=== PATIENT | male | born 1965 | race Caucasian/White ===

== ENCOUNTER 2018-02-18 01:12 | Outpatient (CLI) | payer OTHER, SELFPAY | END 2018-02-18 01:32 | PROVIDERS: PCP Family Medicine; Visit Provider Family Medicine | DX: E11.9 Type 2 diabetes mellitus without complications (principal) | CPT/HCPCS: 36415; 83036 ==

== ENCOUNTER 2018-05-26 01:26 | Outpatient (CLI) | payer OTHER, SELFPAY ==
[2018-05-26 08:12] LABS: Hemoglobin A1C 6.9 % (4.5-6.2)
== END 2018-05-26 01:46 ==
PROVIDERS: PCP Family Medicine; Visit Provider Family Medicine
DX: E11.39 Type 2 diabetes mellitus with other diabetic ophthalmic complication (principal)
CPT/HCPCS: 36415; 83036

== ENCOUNTER 2018-07-19 05:50 | Emergency (ER) | payer OTHER, SELFPAY ==
[2018-07-19] VITALS (36 sets, daily range): BP systolic 113–130; BP diastolic 80–101; PULSE 73–94; RESP 11–20; TEMP 36.1; O2SAT 92–98
--- NOTE | 2018-07-19 06:10 | DI.RAD_ITS ---
SYMPTOM/DIAGNOSIS: LT UPPER THORACIC PAIN PA AND LATERAL CHEST: Comparison is made with 07/29/09. The heart size is normal. The lungs are well inflated and clear. No infiltrate or effusion is seen. IMPRESSION: Negative chest xray.
--- NOTE | 2018-07-19 06:17 | ED.GENADUL_ITS ---
Discharge Plan Disposition Patient Disposition: HOME Condition: Improving Discharge Details Chief Complaint: Nk/Back Pain Clinical Impression: Left-sided thoracic back pain, Left-sided chest wall pain Primary Care Provider: Sheldon Harley ED Provider: Ivett Jones Home Meds and New Rx's Prescriptions: New lidocaine [Lidoderm] 5 % adhesive patch,medicated 1 patch TP DAILY Qty: 15 RF: 0 cyclobenzaprine 10 mg tablet 10 mg PO TID PRN (Reason: muscle spasm) Qty: 10 RF: 0 Continued metformin [Glucophage] 1,000 mg tablet 500 mg PO BID Qty: 90 RF: 4 sildenafil [Viagra] 100 mg tablet 100 mg PO As Directed Qty: 6 RF: 5 aspirin [Ecotrin Low Strength] 81 MG tablet,delayed release (DR/EC) 81 mg PO DAILY RF: 0 indomethacin 50 MG capsule 50 mg PO TID Qty: 15 RF: 2 pen needle, diabetic [BD Ultra-Fine Diane Pen Needle] 1 EACH needle 1 ea Miscellaneous DAILY Qty: 100 RF: 3 ONETOUCH ULTRA TEST STRIPS 1 EACH strip 1 ea Miscellaneous DAILY Qty: 100 RF: 5 Lantus U-100 Insulin 100 UNIT/1 ML solution 50 u Sub-Q BID Qty: 3 RF: 11 lisinopril 20 MG tablet 20 mg PO DAILY Qty: 90 RF: 4 BD Insulin Syringe 1 EACH syringe 1 ea Miscellaneous BID Qty: 180 RF: 4 Victoza 3-[place] 0.6 mg/0.1 mL (18 mg/3 mL) pen injector 1.2 mg subcut DAILY Qty: 1 RF: 5 tamsulosin 0.4 mg capsule 0.8 mg PO DAILY Qty: 180 RF: 4 Discharge Instructions Instructions: Back Pain (ED), Chest Wall Pain (ED) Additional Instructions: Alternate Tylenol and Motrin as needed and directed for pain. Take the muscle relaxer Flexeril as needed and directed for pain or muscle spasm not relieved with Tylenol or Motrin. Use the Lidoderm patch as needed and directed. Follow-up with your primary care doctor in 2 days for reevaluation and for referral for stress test if symptoms persist or worsen. Return immediately to the emergency department any worsening or new concerning symptoms. Discharge Data Discharge Date/Time-TO BE ENTERED AT DEPARTURE: 07/19/18 11:00 Discharge Physician: Ivett Jones Medical Decision Making <Samir Hardwick MD - Last Filed: 07/19/18 07:42> Patient presenting with what I suspect is left upper back musculoskeletal pain. It is reproducible with movement and palpation. However, he reports shortness of breath which may very well be related to him being out of shape. He also complains of the pain radiating into the chest. He has significant cardiac risk factors. Does not really have PE risk factors and does not really describe pleuritic chest pain. However, given his age and risk factors, will treat as musculoskeletal back pain but workup for potential cardiovascular/pulmonary issues. As such EKG, laboratory studies, chest x-ray ordered. He is given Toradol IV and a Lidoderm patch is placed on his back for pain control. Patient's EKG shows a incomplete right bundle branch block but is otherwise unremarkable. Laboratory studies unremarkable other than elevated blood glucose just above 300. Troponin is negative. D-dimer is negative. Chest x-ray per my review shows normal mediastinum with no infiltrate or pneumothorax. Patient's pain has essentially gone away with Lidoderm and Toradol. He is actually able to move and turn his neck and use his left arm better. Again suspect musculoskeletal pain as a source of his discomfort. We will plan a second troponin and EKG after 9 AM. If negative I feel patient is safe to discharge and follow-up with primary care. Would continue nonsteroidals and Lidoderm. Patient will be signed out to oncoming physician Dr. Jones. Medical Records Medical records reviewed: Yes I reviewed the patient's medical records. Lab Data Lab results reviewed: Yes I reviewed the patient's lab results. ECG Data Attestation: I personally reviewed and interpreted this ECG (s) as follows: Prior ECG tracings: available for review Interpretation: Normal sinus rhythm at a rate of 82. Incomplete right bundle branch block. Normal axis. No acute ST changes. Incomplete right bundle is new compared to EKG from 2009. <Ivett Jones DO - Last Filed: 07/19/18 16:26> Please see Dr. Hardwick's note for initial presentation, exam and plan. Patient is a 52-year-old male with a history of diabetes, hypertension, hyperlipidemia, GERD who presents with intermittent stabbing left mid back pain for the past month, worse this morning after waking. He states the pain for the past month has been worse with movement and palpation, and more significant today with any movement of his upper body, arm, coughing or palpation and now radiating around to L side of chest also worse with movement and cough. He does frequent lifting, pushing and pulling at work and home but denies any known inju ry. Considering patient's age and risk factors, a cardiac workup was done which has been negative thus far including a negative troponin, unremarkable EKG and negative d-dimer. HEART score 3 which is low. Plan upon endorsement was to follow-up on repeat troponin and EKG and if negative, okay to discharge home for likely musculoskeletal chest/back pain.. Upon my evaluation, patient's pain does appear more consistent with musculoskeletal as it is worse with movement, cough and palpation. 1100 --second troponin and EKG unremarkable. Patient feels much better and states his pain is 1/10 with Lidoderm patch. Patient is requesting to go home. He denies any chest pain. Will send home with a prescription for Lidoderm patch and Flexeril. Patient instructed to alternate ice and heat, limit heavy pushing or pulling, follow-up with his primary care doctor return here anytime if worse Medical Records Medical records reviewed: Yes I reviewed the patient's medical records. Imaging Data Radiologic Study: Radiologist's impression: XR Chest, 2 Views EXAM DATE/TIME: 07/19/2018 6:13 AM FINDINGS: No airspace consolidation, pleural effusion or pneumothorax. The cardiomediastinal silhouette is unremarkable. IMPRESSION: No acute findings. Lab Data Lab results reviewed: Yes I reviewed the patient's lab results. Laboratory Tests Range/Units 07/19/18 07/19/18 07/19/18 06:30 06:30 06:30 WBC (4.4-10.8) k/cumm 9.29 RBC (4.50-6.00) m/cumm 5.25 Hgb (13.5-17.5) g/dL 16.8 Hct (40.0-50.0) % 45.9 MCV (80-95) fL 87.4 MCH (27.0-33.0) pg 32.0 MCHC (32.0-36.0) g/dL 36.6 H RDW (11.8-14.1) % 12.5 Plt Count (130-400) x1000/uL 167 MPV (8.0-11.0) fL 11.5 H Immature Gran % 0.1 Neutrophils % 63.5 Lymphocytes % 20.1 Monocytes % 14.3 Eosinophils % 1.8 Basophils % 0.2 Absolute Neutrophils (1.2-6.7) k/cumm 5.89 Absolute Lymphocytes (1.2-3.4) k/cumm 1.87 Absolute Monocytes (0.11-0.7) k/cumm 1.33 H Absolute Eosinophils (0.0-0.7) k/cumm 0.17 Absolute Basophils (0.0-0.2) k/cumm 0.02 PT (9.3-11.0) sec 9.2 L INR (0.9-1.1) 0.9 APTT (21.0-31.4) sec 24.2 D-Dimer (<500) ng/mlFEU 261 Sodium (136-145) mmol/L 132 L Potassium (3.5-5.1) mmol/L 4.4 Chloride (98-107) mmol/L 99 Carbon Dioxide (21.0-32.0) mmol/L 24.8 Anion Gap (3-11) mmol/L 8.2 BUN (7-18) mg/dL 22 H Creatinine (0.70-1.30) mg/dL 0.92 Estimated GFR/1.73 m2 (mL/min/1.73m2) >= 60.00 Glucose (70-100) mg/dL 303 H Calcium (8.5-10.1) mg/dL 9.2 Magnesium (1.8-2.4) mg/dL 1.8 Total Bilirubin (0.2-1.0) mg/dL 0.7 AST (15-37) U/L 20 ALT (12-78) U/L 59 Alkaline Phosphatase (46-116) U/L 103 Troponin I (0.00-0.06) ng/mL < 0.02 Total Protein (6.4-8.2) g/dL 7.6 Albumin (3.4-5.0) g/dL 4.1 Range/Units 07/19/18 09:08 WBC (4.4-10.8) k/cumm RBC (4.50-6.00) m/cumm Hgb (13.5-17.5) g/dL Hct (40.0-50.0) % MCV (80-95) fL MCH (27.0-33.0) pg MCHC (32.0-36.0) g/dL RDW (11.8-14.1) % Plt Count (130-400) x1000/uL MPV (8.0-11.0) fL Immature Gran % Neutrophils % Lymphocytes % Monocytes % Eosinophils % Basophils % Absolute Neutrophils (1.2-6.7) k/cumm Absolute Lymphocytes (1.2-3.4) k/cumm Absolute Monocytes (0.11-0.7) k/cumm Absolute Eosinophils (0.0-0.7) k/cumm Absolute Basophils (0.0-0.2) k/cumm PT (9.3-11.0) sec INR (0.9-1.1) APTT (21.0-31.4) sec D-Dimer (<500) ng/mlFEU Sodium (136-145) mmol/L Potassium (3.5-5.1) mmol/L Chloride (98-107) mmol/L Carbon Dioxide (21.0-32.0) mmol/L Anion Gap (3-11) mmol/L BUN (7-18) mg/dL Creatinine (0.70-1.30) mg/dL Estimated GFR/1.73 m2 (mL/min/1.73m2) Glucose (70-100) mg/dL Calcium (8.5-10.1) mg/dL Magnesium (1.8-2.4) mg/dL Total Bilirubin (0.2-1.0) mg/dL AST (15-37) U/L ALT (12-78) U/L Alkaline Phosphatase (46-116) U/L Troponin I (0.00-0.06) ng/mL < 0.02 Total Protein (6.4-8.2) g/dL Albumin (3.4-5.0) g/dL ECG Data Attestation: I personally reviewed and interpreted this ECG (s) as follows: Interpretation: 0623 -- rate of 82, sinus, incomplete RBBB, QTc 420, QRS 116 0914 -- rate of 76, sinus, incomplete RBBB, QTc 402, QRS 114 HPI <Samir Hardwick MD - Last Filed: 07/19/18 07:42> General Mode of arrival: ambulatory . Date/Time Provider Initiated Documentation: 07/19/18 06:00 . Limitations to Documentation: no limitations . Information obtained by: patient . HPI Narrative: Patient presents with left mid scapular pain that he describes as sharp in nature. It seems to go through into the chest. He has probably had it now intermittently for a few months. This morning when he woke up it seemed to be worse than it usually is. It is not really made worse with breathing. It is made worse with reaching behind with his left arm. It is made worse by turning his head to the right. He denies any fever or URI type symptoms. He does report shortness of breath but does not necessarily think it acutely changed and is more related to being out of shape. He feels that the pain radiates into the chest from the back. He denies syncope, diaphoresis, lightheadedness, nausea. He denies lower back or abdominal pain. He has no numbness or tingling or weakness in his extremities. He was concerned about the pain and finally came in for evaluation. He does have cardiac risk factors which include diabetes, hypertension, hyperlipidemia. He chews tobacco but does not smoke. He has no PE risk factors. Related Data Home Medications Medication Instructions Recorded Confirmed aspirin [Ecotrin Low Strength] 81 mg PO DAILY tab-cap 11/14/12 07/19/18 indomethacin 50 mg PO TID #15 tab-cap 06/21/17 07/19/18 Lantus U-100 Insulin 50 u SUB-Q BID #3 vial 08/23/17 07/19/18 pen needle, diabetic [BD #100 ndl 08/23/17 07/19/18 Ultra-Fine Diane Pen Needle] BD Insulin Syringe #180 ea 11/21/17 07/19/18 lisinopril 20 mg PO DAILY #90 tab-cap 11/21/17 07/19/18 metformin 1,000 mg tablet 500 mg PO BID #90 tab-cap 02/20/18 07/19/18 sildenafil 100 mg tablet 100 mg PO As Directed #6 tab-cap 02/20/18 07/19/18 liraglutide 0.6 mg/0.1 mL (18 mg/3 1.2 mg SUBCUT DAILY #1 pack 04/17/18 07/19/18 mL) subcutaneous pen injector tamsulosin 0.4 mg capsule 0.8 mg PO DAILY #180 tab-cap 05/05/18 07/19/18 cyclobenzaprine 10 mg PO TID PRN #10 tab 07/19/18 lidocaine [Lidoderm] 1 patch TP DAILY #15 each 07/19/18 Previous Rx's Medication Instructions Recorded indomethacin 50 mg PO TID #15 tab-cap 06/21/17 Lantus U-100 Insulin 50 u SUB-Q BID #3 vial 08/23/17 pen needle, diabetic [BD #100 ndl 08/23/17 Ultra-Fine Diane Pen Needle] BD Insulin Syringe #180 ea 11/21/17 lisinopril 20 mg PO DAILY #90 tab-cap 11/21/17 metformin 1,000 mg tablet 500 mg PO BID #90 tab-cap 02/20/18 sildenafil 100 mg tablet 100 mg PO As Directed #6 tab-cap 02/20/18 liraglutide 0.6 mg/0.1 mL (18 mg/3 1.2 mg SUBCUT DAILY #1 pack 04/17/18 mL) subcutaneous pen injector tamsulosin 0.4 mg capsule 0.8 mg PO DAILY #180 tab-cap 05/05/18 cyclobenzaprine 10 mg PO TID PRN #10 tab 07/19/18 lidocaine [Lidoderm] 1 patch TP DAILY #15 each 07/19/18 Allergies Allergy/AdvReac Type Severity Reaction Status Date / Time No Known Allergies Allergy Unverified 07/19/18 05:59 General Stated Complaint: Nk/Back Pain IGNACIO: 3 Review of Systems <Samir Hardwick MD - Last Filed: 07/19/18 07:42> Constitutional Denies excessive sweating, Denies fever(s), Denies headache(s) and Denies weakness Eyes Denies change in vision and Denies eye pain ENT Denies otalgia, Denies facial pain, Denies headache(s), Denies nasal congestion and Denies neck pain Cardiovascular Reports chest pain (radiates from back), Denies diaphoresis, Denies syncope, Denies pedal edema, Denies edema, Denies lightheadedness, Reports dyspnea and Reports dyspnea on exertion Respiratory Denies chest congestion, Denies cough, Reports dyspnea and Reports dyspnea on exertion Gastrointestinal Denies abdominal pain, Denies diarrhea, Denies nausea and Denies vomiting Genitourinary Denies hematuria, Denies dysuria and Denies flank pain Musculoskeletal Reports back pain, Denies myalgias, Denies arthralgias, Denies neck pain and Denies numbness Integumentary/Breasts Denies rash Neurologic Denies syncope, Denies headache(s), Denies numbness, Denies radicular pain and Denies weakness Endocrine Denies excessive sweating PFS <Samir Hardwick MD - Last Filed: 07/19/18 07:42> Medical History 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 Brother Diabetes Colon cancer Mother Diabetes Myocardial infarction Brother Diabetes Social History Smoking/Tobacco Use Status: Never Smokeless tobacco user: chewing tobacco Alcohol Intake: current Alcohol Intake frequency: a few times a week Drug use: Never Substance use type: does not use What type of physical activity do you participate in: none Do you feel safe at home: Yes Do you feel safe in your relationship?: Yes Exam <Samir Hardwick MD - Last Filed: 07/19/18 07:42> Const General: cooperative, comfortable and no acute distress Orientation: alert and oriented x3 HENMT Head: normocephalic and atraumatic Neck Neck: full ROM, trachea midline and supple Resp Effort & Inspection: normal respiratory effort Auscultation: clear to auscultation bilaterally Cardio Rate: regular rate Rhythm: regular rhythm Heart Sounds: S1 normal and S2 normal Pulses: radial pulses present GI Inspection: normal to inspection and non-distended Palpation: soft Back/Spine/Pelvis Cervical Spine: cervical ROM normal and No cervical spinal tenderness Thoracic/Lumbar Spine: pain with thoraco-lumbar ROM, paraspinal tenderness (left mid scapula area), No thoracic spinal tenderness and No lumbar spinal tenderness Skin Rashes: no rashes Neuro General: alert, oriented x3, gait normal, no focal motor deficits and CN's II-XI intact bilaterally Sensory Exam: no sensory deficits noted Extrem General: no clubbing, cyanosis or edema and no calf tenderness Course <Samir Hardwick MD - Last Filed: 07/19/18 07:42> Vital Signs Temperature 97.0 F L 07/19/18 05:55 Pulse 82 07/19/18 05:55 Respiratory Rate 16 07/19/18 05:55 Blood Pressure 122/92 H 07/19/18 05:55 Pulse Oximetry 95 07/19/18 05:55 Temperature 97.0 F L 07/19/18 05:55 Temperature Source Temporal Artery Scan 07/19/18 05:55 Pulse 82 07/19/18 05:55 Respiratory Rate 16 07/19/18 05:55 Respiratory Effort Non-Labored 07/19/18 05:57 Blood Pressure 122/92 H 07/19/18 05:55 Blood Pressure Position Supine 07/19/18 05:55 Pulse Oximetry 95 07/19/18 05:55 Oxygen Delivery Method Room Air 07/19/18 05:55 Oxygen Flow Rate 0 07/19/18 05:55 Pain Level 8 07/19/18 05:55 Sign Out <Samir Hardwick MD - Last Filed: 07/19/18 07:42> Sign Out Data: Sign Out Comment: Patient with musculoskeletal left-sided thoracic back pain that is better with Toradol and Lidoderm. Workup has been negative. If his second EKG and troponin remain normal, may be discharged to follow-up with primary care. Patient signed over to Dr. Jones for follow-up of pending EKG/troponin. Last updated by Samir Hardwick MD at 07/19/18 07:49
[2018-07-19] MEDS: Ketorolac 15 MG/ML VIAL IVP (06:40)
[2018-07-19] MEDS: Lidocaine 5% Patch 1 PATCH TP (06:41)
[2018-07-19 07:01] LABS: Abs Immature Grans 0.01 k/cumm (0.0-0.09); Absolute Basophil Count 0.02 k/cumm (0.0-0.2); Absolute Eosinophil Count 0.17 k/cumm (0.0-0.7); Absolute Lymphocyte Count 1.87 k/cumm (1.2-3.4); Absolute Monocyte Count 1.33 k/cumm (0.11-0.7); Absolute Neutrophil Count 5.89 k/cumm (1.2-6.7); Basophils % 0.2; Eosinophils % 1.8; HCT 45.9 % (40.0-50.0); HGB 16.8 g/dL (13.5-17.5); Immature Grans % 0.1; Lymphocytes % 20.1; Mean Corp. HGB Concentration 36.6 g/dL (32.0-36.0); Mean Corpuscular Volume 87.4 fL (80-95); Mean Platelet Volume 11.5 fL (8.0-11.0); Monocytes % 14.3; Neutrophils % 63.5; Platelet Count 167 x1000/uL (130-400); RBC 5.25 m/cumm (4.50-6.00); RBC Distribution Width 12.5 % (11.8-14.1); White Blood Cell Count 9.29 k/cumm (4.4-10.8)
[2018-07-19 07:11] LABS: INR 0.9 (0.9-1.1); PTT Activated 24.2 sec (21.0-31.4); Prothrombin Time 9.2 sec (9.3-11.0)
[2018-07-19 07:19] LABS: ALT 59 U/L (12-78); AST 20 U/L (15-37); Albumin 4.1 g/dL (3.4-5.0); Alkaline Phosphatase 103 U/L (46-116); Anion Gap 8.2 mmol/L (3-11); BUN 22 mg/dL (7-18); Bilirubin, Total 0.7 mg/dL (0.2-1.0); CO2 24.8 mmol/L (21.0-32.0); CREATININE 0.92 mg/dL (0.70-1.30); Calcium 9.2 mg/dL (8.5-10.1); Chloride 99 mmol/L (98-107); Glucose 303 mg/dL (70-100); Magnesium 1.8 mg/dL (1.8-2.4); Potassium 4.4 mmol/L (3.5-5.1); Sodium 132 mmol/L (136-145); Total Protein 7.6 g/dL (6.4-8.2)
[2018-07-19 07:20] LABS: Troponin I < 0.02 ng/mL (0.00-0.06)
[2018-07-19 07:25] LABS: D-Dimer 261 ng/mlFEU (<500)
--- NOTE | 2018-07-19 08:17 | DI.VRAD_ITS ---
EXAM: XR Chest, 2 Views EXAM DATE/TIME: 07/19/2018 6:13 AM CLINICAL HISTORY: 52 years old, male; Pain; Other: Thoracic pain TECHNIQUE: Imaging protocol: XR of the chest, 2 views. COMPARISON: No relevant prior studies available. FINDINGS: No airspace consolidation, pleural effusion or pneumothorax. The cardiomediastinal silhouette is unremarkable. IMPRESSION: No acute findings. Dictated and Authenticated by: Dutch Pagan MD. Ordering:CHANDLER Dawson MD
[2018-07-19 09:34] LABS: Troponin I < 0.02 ng/mL (0.00-0.06)
== END 2018-07-19 11:00 | disposition home or self-care (01) ==
PROVIDERS: Emergency Medicine; Emergency Provider Physician Assistant; PCP Family Medicine
DX: M54.6 Pain in thoracic spine; R07.89 Other chest pain; E11.9 Type 2 diabetes mellitus without complications; I10 Essential (primary) hypertension
CPT/HCPCS: 36415; 80053; 93005; 96374; 99285; 71046; 83735; 84484; 85025; 85379; 85610; 85730; 93010; 99284; J1885

== ENCOUNTER 2018-08-25 07:15 | Outpatient (CLI) | payer OTHER, SELFPAY ==
[2018-08-25 07:55] LABS: Hemoglobin A1C 7.8 % (4.5-6.2)
[2018-08-25 08:38] LABS: Cholesterol 196 mg/dL (50-200); HDL Cholesterol 28 mg/dL (40-60); LDL CHOLESTEROL 78 mg/dL (<100); Triglyceride 560 mg/dL (30-150)
== END 2018-08-25 07:35 ==
PROVIDERS: PCP Family Medicine; Visit Provider Family Medicine
DX: E11.9 Type 2 diabetes mellitus without complications (principal); E78.1 Pure hyperglyceridemia
CPT/HCPCS: 36415; 80061; 83721; 83036

== ENCOUNTER 2018-12-09 02:18 | Outpatient (CLI) | payer OTHER, SELFPAY ==
[2018-12-09 08:37] LABS: Hemoglobin A1C 6.7 % (4.5-6.2)
== END 2018-12-09 02:38 ==
PROVIDERS: PCP Family Medicine; Visit Provider Family Medicine
DX: E11.9 Type 2 diabetes mellitus without complications (principal)
CPT/HCPCS: 36415; 83036

== ENCOUNTER 2019-10-14 03:20 | Outpatient (CLI) | payer MEDICAID, SELFPAY ==
[2019-10-14 09:17] LABS: Anion Gap 11.6 mmol/L (3-11); BUN 24 mg/dL (7-18); CO2 26.4 mmol/L (21.0-32.0); CREATININE 1.04 mg/dL (0.70-1.30); Calcium 9.8 mg/dL (8.5-10.1); Chloride 101 mmol/L (98-107); Glucose 173 mg/dL (74-106); Potassium 4.6 mmol/L (3.5-5.1); Sodium 139 mmol/L (136-145)
[2019-10-14 12:02] LABS: Calculated LDL 148 mg/dL (<100); Cholesterol 260 mg/dL (<200); HDL Cholesterol 37 mg/dL (40-60); Triglyceride 378 mg/dL (<150)
[2019-10-14 12:02] LABS: COMMENT (LAB VIEW ONLY) 129.07 mg/dL
[2019-10-15 09:17] LABS: PSA, Screening 1.3 ng/mL (0.0-3.5)
== END 2019-10-14 03:40 ==
PROVIDERS: PCP Family Medicine; Visit Provider Family Medicine
DX: E11.9 Type 2 diabetes mellitus without complications (principal); Z12.5 Encounter for screening for malignant neoplasm of prostate
CPT/HCPCS: 36415; 80048; 80061; 84153; 82043; 82570

== ENCOUNTER 2020-06-07 02:30 | Outpatient (CLI) | payer MEDICAID, SELFPAY ==
[2020-06-07 08:20] LABS: Hemoglobin A1C 6.7 % (<5.7)
[2020-06-07 08:59] LABS: CREATININE 0.9 mg/dL (0.70-1.30); Calculated LDL 82 mg/dL (<100); Cholesterol 153 mg/dL (<200); HDL Cholesterol 37 mg/dL (40-60); Potassium 4.7 mmol/L (3.5-5.1); Triglyceride 174 mg/dL (<150)
== END 2020-06-07 02:31 | disposition home or self-care (01) ==
LOC: LBO 02:30
PROVIDERS: PCP Nurse Practitioner; Visit Provider Nurse Practitioner
DX: I10 Essential (primary) hypertension (principal); E11.9 Type 2 diabetes mellitus without complications; E78.5 Hyperlipidemia, unspecified
CPT/HCPCS: 36415; 80061; 82565; 83036; 84132

== ENCOUNTER 2021-01-06 02:46 | Outpatient (CLI) | payer MEDICAID, SELFPAY ==
[2021-01-06 12:32] LABS: Hemoglobin A1C 7.6 % (<5.7)
== END 2021-01-06 02:47 | disposition home or self-care (01) ==
LOC: LOS 02:46
PROVIDERS: PCP Nurse Practitioner; Visit Provider Nurse Practitioner
DX: E11.9 Type 2 diabetes mellitus without complications (principal)
CPT/HCPCS: 36415; 83036

== ENCOUNTER 2021-06-06 02:13 | Outpatient (CLI) | payer MEDICAID, SELFPAY ==
[2021-06-06 10:02] LABS: Hemoglobin A1C 7.1 % (<5.7)
[2021-06-06 11:42] LABS: CREATININE 0.8 mg/dL (0.70-1.30); Calculated LDL 94 mg/dL (<100); Cholesterol 174 mg/dL (<200); HDL Cholesterol 39 mg/dL (40-60); Potassium 4.3 mmol/L (3.5-5.1); Triglyceride 205 mg/dL (<150)
[2021-06-06 18:54] LABS: PSA, Screening 1.5 ng/mL (0.0-3.5)
== END 2021-06-06 02:14 | disposition home or self-care (01) ==
LOC: LBO 02:13
PROVIDERS: PCP Nurse Practitioner; Visit Provider Nurse Practitioner
DX: E11.9 Type 2 diabetes mellitus without complications (principal); E78.5 Hyperlipidemia, unspecified; I10 Essential (primary) hypertension; Z12.5 Encounter for screening for malignant neoplasm of prostate
CPT/HCPCS: 36415; 80061; 84153; 82565; 83036; 84132

== ENCOUNTER 2021-11-24 18:37 | Outpatient (REF) | payer MEDICAID, SELFPAY ==
[2021-11-24 20:54] LABS: COMMENT (LAB VIEW ONLY) 143.03 mg/dL
[2021-11-24 20:57] LABS: Microalb ug/mg Crea 162.1 ug/mg Cr
== END 2021-11-24 18:38 | disposition home or self-care (01) ==
LOC: LBN 18:37
PROVIDERS: PCP Nurse Practitioner; Visit Provider Nurse Practitioner
DX: E11.9 Type 2 diabetes mellitus without complications (principal)
CPT/HCPCS: 82043; 82570

== ENCOUNTER 2022-06-13 01:37 | Outpatient (CLI) | payer MEDICAID, SELFPAY ==
[2022-06-13 12:21] LABS: HCT 46.5 % (40.0-50.0); HGB 16.4 g/dL (13.5-17.5); MCH 30.7 pg (27.0-33.0); MCHC 35.3 % (32.0-36.0); MCV 87 fL (80-95); Platelet Count 180 10^3/uL (130-400); RBC 5.34 10^6/uL (4.36-5.78); RDW 11.7 % (11.8-14.1); RDW-SD 37.1 fL; WBC 7.37 10^3/uL (4.4-10.8)
[2022-06-13 12:55] LABS: Hemoglobin A1C 8.9 % (<5.7)
[2022-06-13 13:02] LABS: ALT 61 U/L (16-63); AST 41 U/L (15-37); Albumin 4.2 g/dL (3.4-5.0); Alkaline Phosphatase 110 U/L (46-116); Anion Gap 12.2 mmol/L (3-11); BUN 15 mg/dL (7-18); Bilirubin, Total 0.9 mg/dL (0.2-1.0); CO2 24.8 mmol/L (21.0-32.0); CREATININE 0.8 mg/dL (0.70-1.30); Calcium 9.9 mg/dL (8.5-10.1); Calculated LDL 83 mg/dL (<100); Chloride 99 mmol/L (98-107); Cholesterol 199 mg/dL (<200); Estimated GFR 102.58 (mL/min/1.73m2); Glucose 257 mg/dL (74-106); HDL Cholesterol 41 mg/dL (40-60); Potassium 4.1 mmol/L (3.5-5.1); Sodium 136 mmol/L (136-145); Total Protein 7.8 g/dL (6.4-8.2); Triglyceride 377 mg/dL (<150)
[2022-06-13 22:29] LABS: PSA, Screening 1.5 ng/mL (<=3.5)
== END 2022-06-13 01:38 | disposition home or self-care (01) ==
LOC: LOS 01:37
PROVIDERS: PCP Nurse Practitioner Family; Visit Provider Nurse Practitioner Family
DX: E11.9 Type 2 diabetes mellitus without complications (principal); E66.9 Obesity, unspecified; E78.5 Hyperlipidemia, unspecified; I10 Essential (primary) hypertension; Z00.00 Encounter for general adult medical examination without abnormal findings
CPT/HCPCS: 36415; 80053; 80061; 84153; 85027; 83036

== ENCOUNTER 2022-09-21 09:27 | Outpatient (REF) | payer MEDICAID, SELFPAY ==
[2022-09-21 16:55] LABS: Vitamin B12 329 pg/mL (193-986)
[2022-09-21 17:38] LABS: Hemoglobin A1C 6.5 % (<5.7)
== END 2022-09-21 09:28 | disposition home or self-care (01) ==
LOC: NCHCN 09:27
PROVIDERS: PCP Family Medicine; Visit Provider Family Medicine
DX: E11.9 Type 2 diabetes mellitus without complications (principal); E66.8 Other obesity; Z79.899 Other long term (current) drug therapy
CPT/HCPCS: 82607; 83036

== ENCOUNTER → 2023-03-08 13:49 | Outpatient (CLI) | payer BC, SELFPAY ==
--- NOTE | 2023-03-08 10:48 | DI.RAD_ITS ---
Exam(s) XR CHEST 2V PA LATERAL EXAM: XR CHEST 2V PA LATERAL CLINICAL HISTORY: PNEUMONIA J18.9 TECHNIQUE: 2D digital imaging was performed. COMPARISON: CR XR CHEST 2V PA LATERAL from 07/19/2018 FINDINGS: HEART: Normal size. Aorta: Not dilated. PULMONARY VASCULATURE: Normal. LUNGS: Clear. PLEURAL SPACE: No pleural effusion or pneumothorax. BONE:Unremarkable for age. IMPRESSION: No acute abnormality. DATA REPOSITORY: RADIATION DOSE DELIVERED:
== END ==
PROVIDERS: PCP Family Medicine; Visit Provider Family Medicine
DX: J18.9 Pneumonia, unspecified organism (principal)
CPT/HCPCS: 71046

== ENCOUNTER 2023-06-12 13:43 | Outpatient (REF) | payer BC, SELFPAY ==
[2023-06-12 14:47] LABS: Hemoglobin A1C 6.2 % (<5.7)
[2023-06-12 15:10] LABS: Anion Gap 14.4 mmol/L (3-11); BUN 20 mg/dL (7-18); CO2 23.6 mmol/L (21.0-32.0); CREATININE 0.9 mg/dL (0.70-1.30); Calcium 10.2 mg/dL (8.5-10.1); Chloride 103 mmol/L (98-107); Estimated GFR 98.38 (mL/min/1.73m2); Glucose 186 mg/dL (74-106); Potassium 4.6 mmol/L (3.5-5.1); Sodium 141 mmol/L (136-145); Vitamin B12 1082 pg/mL (193-986)
== END 2023-06-12 13:44 | disposition home or self-care (01) ==
LOC: NCHCN 13:43
PROVIDERS: PCP Family Medicine; Visit Provider Family Medicine
DX: I10 Essential (primary) hypertension (principal); E11.319 Type 2 diabetes mellitus with unspecified diabetic retinopathy without macular edema; G60.9 Hereditary and idiopathic neuropathy, unspecified
CPT/HCPCS: 80048; 82607; 83036

== ENCOUNTER 2023-12-27 16:11 | Outpatient (REF) | payer BC, SELFPAY ==
[2023-12-27 17:26] LABS: Anion Gap 13.1 mmol/L (3-11); BUN 19 mg/dL (7-18); CO2 22.9 mmol/L (21.0-32.0); CREATININE 0.9 mg/dL (0.70-1.30); Calcium 9.9 mg/dL (8.5-10.1); Chloride 100 mmol/L (98-107); Estimated GFR 97.78 (mL/min/1.73m2); Glucose 188 mg/dL (74-106); Potassium 4.5 mmol/L (3.5-5.1); Sodium 136 mmol/L (136-145)
[2023-12-30 08:36] LABS: PSA, Diagnostic 2.4 ng/mL (<=4.5)
== END 2023-12-27 16:12 | disposition home or self-care (01) ==
LOC: NCHCN 16:11
PROVIDERS: PCP Family Medicine; Visit Provider Family Medicine
DX: R35.0 Frequency of micturition (principal)
CPT/HCPCS: 80048; 84153

== ENCOUNTER 2024-08-25 12:05 | Outpatient (REF) | payer OTHER, SELFPAY ==
[2024-08-25 16:39] LABS: COMMENT (LAB VIEW ONLY) 186.34 mg/dL
[2024-08-25 16:41] LABS: Microalb ug/mg Crea 64.3 ug/mg Cr
== END 2024-08-25 12:06 | disposition home or self-care (01) ==
LOC: NCHCN 12:05
PROVIDERS: PCP Family Medicine; Visit Provider Family Medicine
DX: I10 Essential (primary) hypertension (principal)
CPT/HCPCS: 82043; 82570

== ENCOUNTER 2025-04-07 10:34 | Outpatient (REF) | payer OTHER, SELFPAY | END 2025-04-07 10:35 | disposition home or self-care (01) | LOC: LBN 10:34 | PROVIDERS: PCP Family Medicine; Visit Provider Nurse Practitioner Family | DX: N40.1 Benign prostatic hyperplasia with lower urinary tract symptoms (principal); R39.12 Poor urinary stream | CPT/HCPCS: 87086 ==